=== PATIENT | female | born 1945 | race Caucasian/White ===

== ENCOUNTER 2016-12-21 08:51 | Outpatient (CLI) | payer MEDICARE, OTHER ==
--- NOTE | 2016-12-22 15:02 | DEXA Report ---
DEXA SCAN: 12/21/2016 TECHNIQUE: Dual energy x-ray absorptiometry (DXA) was performed on a LOAG system. Regions measured are the AP spine, femoral neck, and, if needed, forearm. COMPARISON: None. In accordance with the International Society for Clinical Densitometry (ISCD) guidelines, data from previous exams may be reanalyzed using current recommendations and techniques. This is done to allow a more accurate basis for comparison with the current study. FINDINGS Data for the lumbar spine is as follows: REGION BMD (g/cm/cm) T-SCORE Z-SCORE L1 0.865 -2.2 -0.9 L2 0.972 -1.9 -0.6 L3 1.040 -1.3 0.0 L4 1.022 -1.5 -0.2 TOTAL 0.980 -1.7 -0.3 NOTE: All evaluable vertebrae are used for classification. Data for the hip is as follows: REGION BMD (g/cm/cm) T-SCORE Z-SCORE Neck 0.680 -2.6 -1.0 TOTAL 0.765 -1.9 -0.6 NOTE: The femoral neck or total proximal femur, whichever is lowest, is used for classification. IMPRESSION: THE WHO CLASSIFICATION BASED ON THE INTERNATIONAL REFERENCE STANDARD IS OSTEOPOROSIS. FRACTURE RISK IS HIGH. RECOMMENDATION: Patients with diagnosis of osteoporosis or osteopenia should have regular bone mineral density assessment. For those eligible for Medicare, routine testing is allowed once every 2 years. Testing frequency can be increased for patients who have rapidly progressing disease or for those who are receiving medical therapy to restore bone mass. COMMENT: World Health Organization (WHO) definitions for osteoporosis and osteopenia: NORMAL BMD: T-score at -1.0 or higher, fracture risk is low. OSTEOPENIA BMD: T-score between -1.0 and -2.5, fracture risk is increased. OSTEOPOROSIS BMD: T-score at -2.5 or lower, fracture risk high. National Osteoporosis Foundation recommends: 1. Obtain adequate dietary calcium (at least 1200 mg per day) and vitamin D (400 -800 international units per day). 2. Participate, as appropriate, in regular weightbearing and muscle- strengthening exercise. 3. Avoid tobacco use and reduce alcohol and caffeine intake. 4. For more detailed information see the website at www.NOF.org. MTDD
== END 2016-12-21 08:52 | disposition home or self-care (01) ==
LOC: DI 08:51
PROVIDERS: ATTEND Family Medicine
DX: M81.0 Age-related osteoporosis without current pathological fracture (principal)
CPT/HCPCS: 77080

== ENCOUNTER 2017-05-19 10:31 | Outpatient (CLI) | payer MEDICARE, OTHER | END 2017-05-19 10:32 | disposition home or self-care (01) | LOC: LAB 10:31 | PROVIDERS: ATTEND Family Medicine | DX: E03.9 Hypothyroidism, unspecified (principal) | CPT/HCPCS: 36415; 84443 ==

== ENCOUNTER 2018-02-25 08:05 | Outpatient (CLI) | payer MEDICARE, OTHER ==
--- NOTE | 2018-02-28 09:24 | Mammography Report ---
Reason: SCREENING MAMMO Procedure Date: 02/25/2018 Accession Number: [id number] / [id number] Procedure: DEX - Screening Mammo w/Jesus CPT Code: FULL RESULT: EXAM: Screening Mammo w/Jesus DATE: 02/25/2018 8:43 AM CLINICAL HISTORY: Screening encounter. No reported risk factors. TECHNIQUE: Bilateral CC and MLO views were obtained. COMPARISON: 12/19/2015 through 11/21/2012. FINDINGS: The breasts demonstrate diffuse fatty replacement bilaterally. There are coarse typically benign bilateral calcifications. No suspicious masses, clustered microcalcifications, or regions of architectural distortion are identified. IMPRESSION: Benign findings RECOMMENDATION: Routine annual screening unless otherwise clinically indicated. BIRADS CATEGORY 2: Benign findings STANDARD QUALIFYING STATEMENTS: 1. This examination was not reviewed with the aid of Computer-Aided Detection (CAD). 2. A negative or benign imaging report should not preclude biopsy if clinically suspicious findings are present. 3. Dense breasts may obscure an underlying neoplasm. 4. This examination was reviewed with the aid of 3D breast imaging (tomosynthesis).
== END 2018-02-25 08:06 | disposition home or self-care (01) ==
LOC: DI 08:05
DX: Z12.31 Encounter for screening mammogram for malignant neoplasm of breast (principal)
CPT/HCPCS: 77063; 77067

== ENCOUNTER 2018-03-02 07:54 | Outpatient (CLI) | payer MEDICARE, OTHER ==
--- NOTE | 2018-03-02 19:21 | MRI Report ---
Reason: SHOULDER IMPINGEMENT SYNDROME,RIGHT Procedure Date: 03/02/2018 Accession Number: [id number] / [id number] Procedure: MRI - Shoulder RT W/O CPT Code: FULL RESULT: EXAM: RIGHT SHOULDER MRI WITHOUT CONTRAST EXAM DATE: 03/02/2018 08:40 AM. CLINICAL HISTORY: Shoulder impingement syndrome, right. Right shoulder pain for 4 months. COMPARISON: SHOULDER 3 VIEW RT 02/17/2018 9:51 AM. TECHNIQUE: Multiplanar, multisequence T1-weighted and fluid-sensitive sequences of the shoulder without contrast. Other: None. FINDINGS: Hypoplasia acromion or prior acromioplasty The acromioclavicular joint is unremarkable. The coracoacromial and coracoclavicular ligaments are intact. Small subacromial/subdeltoid bursal fluid collection Glenohumeral Region: No subluxation. No effusion or loose bodies. Mild chondromalacia glenoid. The glenohumeral ligaments and joint capsule are unremarkable. Bone Marrow: No fracture, marrow edema or bone lesions. Labrum: The labrum is unremarkable on this nonarthrographic study. Musculature/Rotator Cuff: Partial tear bursal surface and articular surface distal posterior supraspinatus tendon and distal anterior supraspinatus tendon 50% thickness measuring 1.8 cm in AP dimension and 1.4 cm in transverse dimension. Biceps Tendon: The long head of the biceps tendon and biceps valeria are intact. Other: The subcutaneous tissues are unremarkable. IMPRESSION: 1. Partial tear of bursal surface and undersurface distal posterior supraspinatus tendon and distal anterior infraspinatus tendon at least 50% thickness 2 cm in AP dimension and 1.4 cm in transverse dimension. 2. Small fluid collection subacromial/subdeltoid bursa. RADIA MUSCULOSKELETAL RADIOLOGY SECTION
== END 2018-03-02 07:55 | disposition home or self-care (01) ==
LOC: DI 07:54
PROVIDERS: ATTEND Orthopaedic Surgery Sports Medicine
DX: M75.41 Impingement syndrome of right shoulder (principal); M75.101 Unspecified rotator cuff tear or rupture of right shoulder, not specified as traumatic

== ENCOUNTER 2018-09-10 15:22 | Outpatient (CLI) | payer MEDICARE, OTHER | END 2018-09-10 15:23 | disposition home or self-care (01) | LOC: LAB 15:22 | PROVIDERS: ATTEND Family Medicine | DX: R19.7 Diarrhea, unspecified (principal) | CPT/HCPCS: 81599; 87045; 87046; 87177; 87209; 87329; 87493 ==

== ENCOUNTER 2018-10-12 10:10 | Day surgery (SDC) | payer MEDICARE, OTHER ==
[2018-10-12] MEDS ORDERED: fentaNYL 250 MCG/5 ML VIAL IVP ONE (10:11)
[2018-10-12] MEDS ORDERED: MIDAZOLAM 2 MG/2 ML VIAL IVP ONE (10:11)
[2018-10-12] MEDS ORDERED: LACTATED RINGERS 1,000 ML IV ONE (10:41)
[2018-10-12 13:02] VITALS: BP 123/60
== END 2018-10-12 10:11 | disposition home or self-care (01) ==
LOC: SDS 10:10
PROVIDERS: ATTEND Surgery
PROC: 0DBE8ZX Excision of Large Intestine, Via Natural or Artificial Opening Endoscopic, Diagnostic (ICD-10-PCS; principal; 2018-10-12 11:45)
DX: Z12.11 Encounter for screening for malignant neoplasm of colon (principal); I10 Essential (primary) hypertension; Z87.891 Personal history of nicotine dependence
CPT/HCPCS: 45380; 83630; 87015; 87045; 87046; 87272; 87329; 87493; J3010; J7120

== ENCOUNTER 2019-01-03 14:38 | Outpatient (CLI) | payer MEDICARE, OTHER ==
--- NOTE | 2019-01-04 08:54 | DEXA Report ---
Reason: OSTEOPOROSIS Procedure Date: 01/03/2019 Accession Number: [id number] / [id number] Procedure: DEX - Dexa Spine and/or Hip CPT Code: Final Report FULL RESULT: EXAM: Dexa Spine and/or Hip DATE: 01/03/2019 3:00 PM CLINICAL HISTORY: OSTEOPOROSIS TECHNIQUE: Dual energy x-ray absorptiometry (DXA) was performed on a Trusted[employer] System. Regions measured are the AP Spine, femoral neck, and if needed forearm. COMPARISON: 12/21/2016. In accordance with the International Society for Clinical Densitometry (ISCD) guidelines, data from previous exams may be reanalyzed using current recommendations and techniques. This is done to allow a more accurate basis for comparison with the current study. FINDINGS: The data for the lumbar spine is as follows: BMD (g/cm/cm) T-SCORE Z-SCORE REGION L1 0.876 -2.1 -0.2 L2 1.044 -1.3 0.6 L3 1.139 -0.5 1.4 L4 1.091 -0.9 1.0 TOTAL 1.045 -1.1 0.8 NOTE: All evaluable vertebrae are used for classification The data for the hip is as follows: BMD (g/cm/cm) T-SCORE Z-SCORE REGION Neck 0.687 -2.5 -0.5 TOTAL 0.785 -1.8 0.0 NOTE: The femoral neck or total proximal femur, whichever is lowest, is used for classification. DXA RESULTS SUMMARY: Spine SCAN DATE AGE BMD CHANGE VS CHANGE VS PREVIOUS PREVIOUS % [birth year]03[birth year]2019 [age] 1.045 0.065* 6.6* 12/21/2016 [age] 0.980 * Denotes significant change at the 95% confidence level. Denotes dissimilar scan types or analysis methods. DXA RESULTS SUMMARY: Hip SCAN DATE AGE BMD CHANGE VS CHANGE VS PREVIOUS PREVIOUS % [birth year]03/2019 73.3 0.785 0.020 2.6 12/21[birth year]2016 71.3 0.765 * Denotes significant change at the 95% confidence level. Denotes dissimilar scan types or analysis methods. IMPRESSION: THE WHO CLASSIFICATION BASED ON THE INTERNATIONAL REFERENCE STANDARD IS OSTEOPOROSIS. THE FRACTURE RISK IS HIGH. RECOMMENDATION: Patients with diagnosis of osteoporosis or osteopenia should have regular bone mineral density assessment. For those eligible for Medicare, routine testing is allowed once every 2 years. Testing frequency can be increased for patients who have rapidly progressing disease or for those who are receiving medical therapy to restore bone mass. COMMENT: World Health Organization (WHO) definitions for osteoporosis and osteopenia: NORMAL BMD: T-score at -1.0 or higher, fracture risk is low OSTEOPENIA BMD: T-score between -1.0 and -2.5, fracture risk is increased. OSTEOPOROSIS BMD: T-score at -2.5 or lower, fracture risk is high. National Osteoporosis Foundation recommends: 1. Obtain adequate dietary calcium (at least 1200 mg per day) and vitamin D (400-800 international units per day). 2. Participate, as appropriate, in regular weightbearing and muscle-strengthening exercise. 3. Avoid tobacco use and reduce alcohol and caffeine intake. 4. For more detailed information see the website at www.NOF.org.
== END 2019-01-03 14:39 | disposition home or self-care (01) ==
LOC: DI 14:38
PROVIDERS: ATTEND Family Medicine
DX: M81.0 Age-related osteoporosis without current pathological fracture (principal)
CPT/HCPCS: 77080

== ENCOUNTER 2019-02-17 08:34 | Outpatient (CLI) | payer MEDICARE, OTHER ==
--- NOTE | 2019-02-20 08:37 | Mammography Report ---
Reason: SCREENING MAMMO Procedure Date: 02/17/2019 Accession Number: [id number] / [id number] Procedure: DEX - Screening Mammo w/Jesus CPT Code: Final Report FULL RESULT: EXAM: Screening Mammo w/Jesus DATE: 02/17/2019 9:20 AM CLINICAL HISTORY: Screening encounter. TECHNIQUE: (B) - Bilateral CC and MLO views were obtained. COMPARISON: 02/25/2018 through 11/21/2012. PARENCHYMAL PATTERN: (F) - The breast(s) demonstrate(s) diffuse fatty replacement. FINDINGS: There are coarse typically benign calcifications. There are no suspicious masses, calcifications, or areas of distortion. IMPRESSION: Benign findings. BI-RADS category 2. RECOMMENDATION: (ANNUAL) - Recommend routine annual screening mammography. BI-RADS CATEGORY: (2) - Benign Findings. STANDARD QUALIFYING STATEMENTS: 1. This examination was not reviewed with the aid of Computer-Aided Detection (CAD). 2. A negative or benign imaging report should not preclude biopsy if clinically suspicious findings are present. 3. Dense breasts may obscure an underlying neoplasm. 4. This examination was reviewed with the aid of 3D breast imaging (tomosynthesis).
== END 2019-02-17 08:35 | disposition home or self-care (01) ==
LOC: DI 08:34
DX: Z12.31 Encounter for screening mammogram for malignant neoplasm of breast (principal)
CPT/HCPCS: 77063; 77067

== ENCOUNTER 2020-04-02 08:50 | Outpatient (CLI) | payer MEDICARE, OTHER ==
--- NOTE | 2020-04-03 14:33 | Mammography Report ---
BILATERAL DIGITAL SCREENING MAMMOGRAM 3D/2D: 04/02/2020 CLINICAL: Routine screening. Comparison is made to exams dated: 02/17/2019 mammogram, 02/25/2018 mammogram, 12/19/2015 mammogram, 11/29/2014 mammogram, 11/27/2013 mammogram, and 11/21/2012 mammogram - [facility]. T here are scattered fibroglandular elements in both breasts. There are benign calcifications in both breasts. No significant masses, calcifications, or other findings are seen in either breast. There has been no significant interval change. IMPRESSION: BENIGN There is no mammographic evidence of malignancy. A 1 year screening mammogram is recommended. This exam was interpreted at Station ID: [id number]. NOTE: For mammograms, a report in lay terms will be sent to the patient. Approximately 15% of breast malignancies will not be visualized mammographically. In the management of a palpable breast mass, a negative mammogram must not discourage biopsy of a clinically suspicious lesion. Electronically Signed By: Boby Salomon M.D. [email or web address]:04/02/2020 13:04:10 ACR BI-RADS Category 2: Benign Finding(s) 3342F PARENCHYMAL PATTERN: (A) - The breast(s) demonstrate(s) scattered fibroglandular densities. BI-RADS CATEGORY: (2) - 2 RECOMMENDATION: (ANNUAL) - Recommend routine annual screening mammography. [id number] 1 year screening LATERALITY: (B)
== END 2020-04-02 08:51 | disposition home or self-care (01) ==
LOC: DI.N 08:50
DX: Z12.31 Encounter for screening mammogram for malignant neoplasm of breast (principal)

== ENCOUNTER 2020-05-01 07:07 | Outpatient (CLI) | payer MEDICARE, OTHER ==
[2020-05-01 07:42] LABS: BASOPHILS # (AUTO) 0.1 10^3/uL (0.0-0.1); BASOPHILS % (AUTO) 0.8 %; EOSINOPHILS # (AUTO) 0.2 10^3/uL (0.0-0.7); EOSINOPHILS % (AUTO) 3.5 %; HCT - HEMATOCRIT 42.3 % (37.0-47.0); HGB - HEMOGLOBIN 13.9 g/dL (12.0-16.0); LYMPHOCYTES # (AUTO) 2.1 10^3/uL (1.5-3.5); MEAN CORPUSCULAR HGB CONC 32.9 g/dL (32.0-36.0); MEAN CORPUSCULAR VOLUME 91.4 fL (81.0-99.0); MEAN PLATELET VOLUME 9.3 fL (7.9-10.8); MONOCYTES # (AUTO) 0.4 10^3/uL (0.0-1.0); MONOCYTES % (AUTO) 6.8 %; NEUTROPHILS # (AUTO) 3.5 10^3/uL (1.5-6.6); NEUTROPHILS % (AUTO) 55.3 %; PLT - PLATELET COUNT 294 10^3/uL (130-450); RED BLOOD COUNT 4.63 10^6/uL (4.20-5.40); RED CELL DISTRIBUTION WIDTH 13.7 % (12.0-15.0); WHITE BLOOD COUNT 6.4 x10^3/uL (4.8-10.8)
[2020-05-01 07:47] LABS: ALBUMIN/GLOBULIN RATIO 1.3 (1.0-2.2); ALKALINE PHOSPHATASE 49 IU/L (42-121); ALT ALANINE AMINOTRANSFERASE 21 IU/L (10-60); AST ASPARTATE AMINOTRANSFERASE 18 IU/L (10-42); BILIRUBIN,TOTAL 0.5 mg/dL (0.2-1.0); BUN - BLOOD UREA NITROGEN 14 mg/dL (6-20); CALCIUM 9.4 mg/dL (8.5-10.3); CARBON DIOXIDE - CO2 26 mmol/L (21-32); CHLORIDE 105 mmol/L (101-111); CHOL/HDL RATIO 4.3 (<4.4); CHOLESTEROL 255 mg/dL; CREATININE 0.9 mg/dL (0.4-1.0); GFR - MDRD 61 (>89); GLUCOSE 102 mg/dL (70-100); HDL CHOLESTEROL 59 mg/dL; LDL CHOLESTEROL,CALCULATED 173 mg/dL; LDL/HDL RATIO 2.9 (<4.4); POTASSIUM 4.6 mmol/L (3.5-5.0); SODIUM 140 mmol/L (135-145); TOTAL PROTEIN 7.2 g/dL (6.7-8.2); TRIGLYCERIDES 115 mg/dL; VLDL CHOLESTEROL 23 mg/dL
[2020-05-01 08:23] LABS: THYROID STIMULATING HORMONE 7.78 uIU/mL (0.34-5.60)
[2020-05-01 09:01] LABS: FREE T4 (FREE THYROXINE) 0.91 ng/dL (0.58-1.64)
== END 2020-05-01 07:08 | disposition home or self-care (01) ==
LOC: LAB 07:07
PROVIDERS: ATTEND Family Medicine
DX: I10 Essential (primary) hypertension (principal); E78.5 Hyperlipidemia, unspecified; E03.9 Hypothyroidism, unspecified; F41.9 Anxiety disorder, unspecified
CPT/HCPCS: 36415; 80053; 80061; 83721; 84439; 84443; 85025

== ENCOUNTER 2020-06-17 07:00 | Outpatient (CLI) | payer MEDICARE, OTHER | END 2020-06-17 23:59 | disposition home or self-care (01) | LOC: COV 07:00 | PROVIDERS: ATTEND Ophthalmology | DX: Z01.812 Encounter for preprocedural laboratory examination (principal); H25.811 Combined forms of age-related cataract, right eye; Z20.822 Contact with and (suspected) exposure to COVID-19 ==

== ENCOUNTER 2020-06-20 09:18 | Day surgery (SDC) | payer MEDICARE, OTHER ==
[~2020-06-20 09:18] MED LIST: BRIMONIDINE 0.2% OPHTH DROPS 5 ML ONE; BSS/LIDOCAINE/EPINEPHRINE 1 ML SYRINGE ONE; EPINEPHrine 1 MG/ML AMP ONE; KETOROLAC 0.45% OPHTH DROPS ONE; PROPARACAINE 0.5% OPHTH DROPS 15 ML ONE; TIMOLOL 0.5% OPHTH DROPS ONE; TRIAMCIN/MOXIFLOX OPHTHALMIC 0.6 ML VIAL IO ONE; VANCOMYCIN OPHTHALMI 8MG/0.8ML 8 MG/0.8 ML SYRINGE IO ONE
[2020-06-20] MEDS ORDERED: LACTATED RINGERS 500 ML IV ONE ×2 (10:46→11:34)
[2020-06-20] MEDS ORDERED: MIDAZOLAM 2 MG/2 ML VIAL ONE ×2 (11:06→11:19)
--- NOTE | 2020-06-20 11:12 | ANESTHESIA ---
Pre-Anesthesia VS, & Labs - Diagnosis right combined cataract - Procedure cataract extraction with intraocular lens, right Vital Signs: Temp Pulse Resp BP Pulse Ox 35.8 C L 64 16 196/74 H 97 06/20/20 10:38 06/20/20 10:38 06/20/20 10:38 06/20/20 10:38 06/20/20 10:38 Height: 5 ft 1.5 in Weight (kg): 71 kg Body Mass Index: 29.0 BMI Classification: Overweight - NPO >8 hours - Is Patient ?: No Home Medications and Allergies Levothyroxine [Synthroid] 100 mcg PO DAILY 10/11/18 Losartan [Cozaar] 50 mg PO DAILY 10/11/18 Allergies/Adverse Reactions: Allergies Allergy/AdvReac Type Severity Reaction Status Date / Time Penicillins AdvReac Unknown Verified 06/20/20 10:53 Anes History & Medical History - Anesthetic History Anesthesia Complications: reports: No previous complications - Medical History Cardiovascular: reports: Hypertension Pulmonary: reports: None Gastrointestinal: reports: GERD Urinary: reports: Frequency Musculoskeletal: reports: Osteoporosis Endocrine/Autoimmune: reports: HyPOthyroidism Skin: reports: Eczema - Surgical History General: reports: Cholecystectomy, Colonoscopy Gynecologic: reports: section, Tubal ligation Exam General: Alert Dental: WNL Mouth Opening: Greater than 4 Fingerbreadths Neck Mobility: Normal Mallampati classification: II Respiratory: Lungs clear Cardiovascular: Regular rate Plan Anesthesia Type: MAC Consent for Procedure(s) Verified and Reviewed: Yes Code Status: Attempt Resuscitation ASA classification: 2-Mild systemic disease Is this case an emergency?: No
[2020-06-20] MEDS ORDERED: fentaNYL 100 MCG/2 ML VIAL ONE (11:21)
[2020-06-20] MEDS ORDERED: BRIMONIDINE 0.2% OPHTH DROPS 5 ML OPTH ONE (11:22)
[2020-06-20] MEDS ORDERED: TIMOLOL 0.5% OPHTH DROPS OPTH ONE (11:22)
[2020-06-20] MEDS ORDERED: EPINEPHrine 1 MG/ML AMP IR ONE (11:22)
[2020-06-20] MEDS ORDERED: CHONDR SULF/HYALURONATE SYRINGE IO ONE (11:22)
[2020-06-20] MEDS ORDERED: BSS/LIDOCAINE/EPINEPHRINE 1 ML SYRINGE IO ONE (11:23)
[2020-06-20] MEDS ORDERED: TRIAMCIN/MOXIFLOX OPHTHALMIC 0.6 ML VIAL IO ONE (11:23)
[2020-06-20] MEDS ORDERED: PROPARACAINE 0.5% OPHTH DROPS 15 ML EACHEYE ONE (11:23)
[2020-06-20] MEDS ORDERED: VANCOMYCIN OPHTHALMI 8MG/0.8ML 8 MG/0.8 ML SYRINGE IO ONE (11:24)
[2020-06-20 12:10] VITALS: BP 111/71
--- NOTE | 2020-06-20 12:39 | OPERATIVE REPORT ---
DATE OF SERVICE: 06/20/2020 Physician: Willie Nunez MD PREOPERATIVE DIAGNOSIS: Visually significant cataract, right eye. This was her first cataract surge ry. POSTOPERATIVE DIAGNOSIS: Visually significant cataract, right eye. This was her first cataract surg boni. PROCEDURE PERFORMED: Phacoemulsification with posterior chamber intraocular lens implant, right eye. SURGEON: Willie Nunez MD ANESTHESIA: Monitored anesthesia care. COMPLICATIONS: None. 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 Best corrected visual acuity was 20/40 with glare to 20/6 0 in the right eye. Indications for surgery are overall decrease in vision, difficulty seeing words on a computer screen, difficulty reading, difficulty seeing words, closed caption or game scores on T V, difficulty seeing street signs, and difficulty driving in low light or at night. She was consente d at length concerning risks and benefits of cataract surgery, after which she expressed a desire to proceed with surgery. OPERATIVE PROCEDURE: The patient was taken to OR #3 and placed under monitored anesthesia care. A s urgical timeout was conducted, confirming correct patient, correct procedure, and correct surgical si te. She was given topical anesthesia, and prepped and draped in the usual sterile fashion. The eye was entered at the 12 and 9 o'clock positions. Intracameral Shugarcaine was injected into the anteri or chamber, followed by Viscoat. A continuous-tear curvilinear capsulorrhexis was performed. The nu cleus was hydrodissected and phacoemulsified. The cortex was evacuated using automated infusion and aspiration. Provisc was injected in the capsular bag, and a 22.0 diopter intraocular lens was insert ed into the bag. Infusion and aspiration were used to evacuate the viscoelastic materials. The eye was inflated to physiologic pressure using balanced salt solution and found to be watertight. Approx imately 0.25 mL mixture of triamcinolone and moxifloxacin was injected transsclerally into the vitreo us in the inferotemporal quadrant. An additional 0.55 mL of a mixture of triamcinolone, moxifloxacin , and vancomycin was injected subconjunctivally in the superior quadrant for infection and inflammati on prophylaxis. Wound integrity was checked with Weck-Jagruti sponges. The patient was taken from the o perating room in good condition and given postoperative instructions. TD: 06/20/2020 12:38
--- NOTE | 2020-06-20 16:07 | ANESTHESIA POST OP EVALUATION ---
Anesthesia Post Eval - Post Anesthesia Eval Vitals: Last Vital Signs Temp 36.5 C 06/20/20 12:08 Pulse 62 06/20/20 12:08 Resp 19 06/20/20 12:08 BP 111/71 06/20/20 12:08 Pulse Ox 96 06/20/20 12:08 CV Function Including HR & BP: Stable Pain Control: Satisfactory Nausea & Vomiting: Negative Mental Status: Baseline Respiratory Status: Airway Patent Hydration Status: Satisfactory Anesthesia Complications: None
== END 2020-06-20 09:19 | disposition home or self-care (01) ==
LOC: SDS 09:18
PROVIDERS: ATTEND Ophthalmology
DX: H25.811 Combined forms of age-related cataract, right eye (principal); I10 Essential (primary) hypertension; E03.9 Hypothyroidism, unspecified; Z87.891 Personal history of nicotine dependence; R35.0 Frequency of micturition; M81.0 Age-related osteoporosis without current pathological fracture; E66.3 Overweight; Z68.29 Body mass index [BMI] 29.0-29.9, adult
CPT/HCPCS: 66984; A9270; J3490; J7120

== ENCOUNTER 2020-09-27 09:06 | Outpatient (CLI) | payer MEDICARE, OTHER ==
--- NOTE | 2020-09-27 09:53 | XRAY Report ---
PROCEDURE: Abdomen 1 View X-Ray INDICATIONS: TENESMUS; RECTAL SPASMS TECHNIQUE: 1 view of the abdomen were acquired. COMPARISON: None FINDINGS: Surgical changes and devices: Surgical clips are seen in gallbladder fossa.. Bowel: No pneumoperitoneum. The bowel gas pattern is nonobstructive. Mild fecal stasis throughout t he colon is seen. Soft tissues: No masses; visualized solid organ contours appear normal in size. No suspicious abdom inal calcifications. Bones: No suspicious bony abnormalities. IMPRESSION: Mild constipation. No bowel obstruction or gross free air. Reviewed by: Juan Jose Abreu MD on 09/27/2020 9:51 AM PDT Approved by: Juan Jose Abreu MD on 09/27/2020 9:51 AM PDT Station ID: [id number]
== END 2020-09-27 23:59 | disposition home or self-care (01) ==
LOC: DI.N 09:06
PROVIDERS: ATTEND Physician Assistant Medical
DX: R19.8 Other specified symptoms and signs involving the digestive system and abdomen (principal); K59.4 Anal spasm; K59.00 Constipation, unspecified; R10.9 Unspecified abdominal pain
CPT/HCPCS: 87086

== ENCOUNTER 2020-09-27 09:09 | Outpatient (CLI) | payer MEDICARE, OTHER | END 2020-09-27 23:59 | disposition home or self-care (01) | LOC: LAB.N 09:09 | PROVIDERS: ATTEND Physician Assistant Medical | DX: R19.8 Other specified symptoms and signs involving the digestive system and abdomen (principal); R10.9 Unspecified abdominal pain | CPT/HCPCS: 87086 ==

== ENCOUNTER 2021-01-13 07:50 | Outpatient (CLI) | payer MEDICARE ==
[2021-01-13 08:04] LABS: BASOPHILS # (AUTO) 0.1 10^3/uL (0.0-0.1); BASOPHILS % (AUTO) 0.8 %; EOSINOPHILS # (AUTO) 0.2 10^3/uL (0.0-0.7); EOSINOPHILS % (AUTO) 2.7 %; HCT - HEMATOCRIT 43.1 % (37.0-47.0); HGB - HEMOGLOBIN 14.2 g/dL (12.0-16.0); LYMPHOCYTES % (AUTO) 32.4 %; MEAN CORPUSCULAR HEMOGLOBIN 29.7 pg (27.0-31.0); MEAN CORPUSCULAR HGB CONC 32.9 g/dL (32.0-36.0); MEAN CORPUSCULAR VOLUME 90.2 fL (81.0-99.0); MONOCYTES # (AUTO) 0.4 10^3/uL (0.0-1.0); MONOCYTES % (AUTO) 5.6 %; NEUTROPHILS # (AUTO) 3.6 10^3/uL (1.5-6.6); NEUTROPHILS % (AUTO) 58.2 %; PLT - PLATELET COUNT 283 10^3/uL (130-450); RED BLOOD COUNT 4.78 10^6/uL (4.20-5.40); RED CELL DISTRIBUTION WIDTH 13.7 % (12.0-15.0); WHITE BLOOD COUNT 6.2 x10^3/uL (4.8-10.8)
[2021-01-13 08:33] LABS: ALBUMIN 4.3 g/dL (3.2-5.5); ALBUMIN/GLOBULIN RATIO 1.3 (1.0-2.2); ALKALINE PHOSPHATASE 51 IU/L (42-121); ALT ALANINE AMINOTRANSFERASE 19 IU/L (10-60); AST ASPARTATE AMINOTRANSFERASE 20 IU/L (10-42); BUN - BLOOD UREA NITROGEN 14 mg/dL (6-20); CALCIUM 9.2 mg/dL (8.5-10.3); CARBON DIOXIDE - CO2 26 mmol/L (21-32); CHLORIDE 104 mmol/L (101-111); CHOL/HDL RATIO 3.4 (<4.4); CHOLESTEROL 196 mg/dL; GFR - MDRD 54 (>89); GLUCOSE 106 mg/dL (70-100); HDL CHOLESTEROL 58 mg/dL; LDL CHOLESTEROL,CALCULATED 115 mg/dL; SODIUM 139 mmol/L (135-145); TOTAL PROTEIN 7.7 g/dL (6.7-8.2); TRIGLYCERIDES 117 mg/dL; VLDL CHOLESTEROL 23 mg/dL
[2021-01-13 08:44] LABS: THYROID STIMULATING HORMONE 4.69 uIU/mL (0.34-5.60)
== END 2021-01-13 07:51 | disposition home or self-care (01) ==
LOC: LAB 07:50
PROVIDERS: ATTEND Family Medicine
DX: I10 Essential (primary) hypertension (principal); E78.5 Hyperlipidemia, unspecified; E03.9 Hypothyroidism, unspecified
CPT/HCPCS: 36415; 80053; 80061; 83721; 84443; 85025

== ENCOUNTER 2021-06-03 08:23 | Outpatient (CLI) | payer MEDICARE, OTHER ==
--- NOTE | 2021-06-03 13:13 | DEXA Report ---
PROCEDURE: Dexa Spine and/or Hip INDICATIONS: DISORDER OF BONES TECHNIQUE: Dual energy x-ray absorptiometry (DXA) was performed on a [employer] System. Regions measur ed are the AP Spine, femoral neck, and if needed forearm. COMPARISON: None. FINDINGS: Lumbar Spine: Bone Mineral Density 1.096 g/cm/cm,T score -0.7, normal. Increased 4.9% compared to prior. Left Hip: Bone Mineral Density 0.768 g/cm/cm,T score -1.9, osteopenia. Decreased 2.2% compared to prior. Left Femoral Neck: Bone Mineral Density 0.691 g/cm/cm, T score -2.5, osteoporosis (T score greater or equal to -1.0: NORMAL) (T score from -1.1 to -2.4: OSTEOPENIA) (T score less than or equal to -2.5 to: OSTEOPOROSIS) Impression: Osteoporosis Patients with diagnosis of osteoporosis or osteopenia should have regular bone mineral density assess ment. For those eligible for Medicare, routine testing is allowed once every 2 years. Testing frequ ency can be increased for patients who have rapidly progressing disease or for those who are receivin g medical therapy to restore bone mass. Reviewed by: Anderson Galvan on 06/03/2021 1:11 PM PDT Approved by: Anderson Galvan on 06/03/2021 1:11 PM PDT Station ID: [id number]
== END 2021-06-03 08:24 | disposition home or self-care (01) ==
LOC: DI 08:23
PROVIDERS: ATTEND Family Medicine
DX: M81.0 Age-related osteoporosis without current pathological fracture (principal)

== ENCOUNTER 2021-08-22 12:31 | Outpatient (CLI) | payer MEDICARE, OTHER ==
--- NOTE | 2021-08-22 13:59 | XRAY Report ---
PROCEDURE: Foot 3 View LT INDICATIONS: LEFT FOOT PAIN TECHNIQUE: 3 views of the foot were acquired. COMPARISON: None FINDINGS: Bones: No acute fractures or dislocations. No suspicious bony lesions. Degenerative changes of the first metatarsophalangeal joint and first tarsometatarsal joint. No suspicious osseous lesions. Retr ocalcaneal enthesophyte. Soft tissues: No tibiotalar joint effusion. Achilles tendon appears normal. IMPRESSION: Left foot without acute fracture or dislocation. Degenerative changes of the first tarsometatarsal and metatarsophalangeal joints. Retrocalcaneal enthesophyte. Reviewed by: Eugenio López MD on 08/22/2021 1:57 PM PDT Approved by: Eugenio López MD on 08/22/2021 1:57 PM PDT Station ID: [id number]
== END 2021-08-22 12:32 | disposition home or self-care (01) ==
LOC: DI 12:31
PROVIDERS: ATTEND Podiatrist
DX: M19.072 Primary osteoarthritis, left ankle and foot (principal); M77.32 Calcaneal spur, left foot